=== PATIENT | male | born 1930 ===

== ENCOUNTER 2017-06-27 06:14 | Day surgery (SDC) | payer MEDICARE ==
[2015-02-24 09:21] VITALS: BMI 26.4
[2017-06-27] MEDS ORDERED: Propofol 10 mg/ml Inj (20 ML) ONE (07:54)
[2017-06-27] MEDS ORDERED: Lactated Ringer's 1,000 ML IV ONE (08:55)
--- NOTE | 2017-06-27 08:55 | CP.SDSHP ---
Same Day Surgery H & P - History Proposed Procedure: endoscopy Pre-Op Diagnosis: reflux, gastritis - Previous Medical/Surgical History Comments: prostate Cancer - Allergies Allergies: Allergies Penicillins Allergy (Severe, Verified 06/27/17 07:07) ANAPHYLAXIS - Physical Exam Vital Signs: Vital Signs 06/27/17 07:08 Temperature 97.1 F L Pulse Rate 66 Respiratory 19 Rate Blood Pressure 147/70 O2 Sat by Pulse 97 Oximetry Mental Status: Alert & Oriented x3 Neuro: WNL Heart: WNL Lungs: WNL GI: WNL - {Optional Preform as Required} Abdomen: WNL - Impression Impression: reflux, gastritis, esophagitis Pt. Evaluated Today:Candidate for Anesthesia & Procedure: Yes - Date & Time Date: 06/27/17 Time: 08:50 Short Stay Discharge - Short Stay Discharge Admitting Diagnosis/Reason for Visit: GASTRITIS Disposition: HOME/ ROUTINE
[2017-06-27 10:08] VITALS: O2SAT 100
[2017-06-27 10:54] VITALS: BP 147/67; PULSE 57; RESP 16; TEMP 98.7
== END 2017-06-27 10:30 | disposition home or self-care (01) ==
LOC: C.ENDO 06:14
PROVIDERS: ATTEND Internal Medicine Gastroenterology
DX: K21.0 Gastro-esophageal reflux disease with esophagitis (principal); K29.70 Gastritis, unspecified, without bleeding; Z87.891 Personal history of nicotine dependence; Z88.0 Allergy status to penicillin; I10 Essential (primary) hypertension; J43.9 Emphysema, unspecified; K44.9 Diaphragmatic hernia without obstruction or gangrene
CPT/HCPCS: 43239; 88305; 88312; 88342; J3010; J7120

== ENCOUNTER 2018-04-15 13:54 | Outpatient (CLI) | payer MEDICARE | END 2018-04-15 13:55 | disposition home or self-care (01) | LOC: C.LAB 13:54 ==

== ENCOUNTER 2018-05-29 12:02 | Emergency (ER) | payer MEDICARE ==
[2018-05-29 12:02] VITALS: BMI 26.8
[2018-05-29 13:01] LABS: BASO # 0.1 K/uL (0.0-0.2); BASO % 0.6 % (0.0-2.0); EOS # 0.3 K/uL (0.0-0.7); HEMOGLOBIN 13.4 g/dL (12.0-18.0); LYMPH # 0.7 K/uL (1.0-4.3); LYMPH % 4.4 % (20.0-40.0); MEAN CELL VOLUME 88.2 fL (80.0-94.0); MEAN CORPUSCULAR HEMOGLOBIN 29.5 pg (27.0-31.0); MEAN CORPUSCULAR HGB CONC 33.5 g/dL (33.0-37.0); MEAN PLATELET VOLUME 8.5 fL (7.2-11.7); MONO # 1.4 K/uL (0.0-0.8); MONO % 8.9 % (0.0-10.0); NEUT # 13.5 K/uL (1.8-7.0); NEUT % 84.1 % (50.0-75.0); PLATELET COUNT 272 K/uL (130-400); RBC 4.55 Mil/uL (4.40-5.90); RED CELL DISTRIBUTION WIDTH 14.4 % (11.5-14.5)
[2018-05-29 13:03] LABS: VENOUS BLOOD GAS BASE EXCESS 0.5 mmol/L (0.0-2.0); VENOUS BLOOD GAS PCO2 41 mmHg (40-60); VENOUS BLOOD GAS PO2 32 mm/Hg (30-55)
[2018-05-29 13:11] LABS: INR 1.1; PROTHROMBIN TIME 12.2 SECONDS (9.7-12.2)
--- NOTE | 2018-05-29 13:15 | C.PDOC ---
History Of Present Illness 87 y/o male presents to the ER complaining of fever, cough and body aches which began today. Patient states that he was admitted for pneumonia at another hospital and he was discharged last week. Patient denies having CP,SOB, nausea, vomiting, and diarrhea. Of note, patient is febrile in triage. Time Seen by Provider: 05/29/18 12:22 Chief Complaint (Nursing): Fever History Per: Patient History/Exam Limitations: no limitations Onset/Duration Of Symptoms: Days Current Symptoms Are (Timing): Still Present Severity: Moderate Past Medical History Reviewed: Historical Data, Nursing Documentation, Vital Signs Vital Signs: Last Vital Signs Temp 100.2 F H 05/29/18 12:05 Pulse 104 H 05/29/18 12:05 Resp 20 05/29/18 12:05 BP 153/69 H 05/29/18 12:05 Pulse Ox 98 05/29/18 12:05 - Medical History PMH: Benign Prostatic Hyperplasia, Colonic Polyps, COPD, Emphysema, Fractures (LEFT WRIST), Gastritis, HTN Denies: Chronic Kidney Disease, Seizures, Sleep Apnea, TIA Surgical History: Endoscopy - [facility] Procedures (05/14/18) APPLICATION OF SPLINT (11/19/14) ENDOSC POLYPECTOMY OF LG INTEST (02/11/14) ESOPHAGOGASTRODUODENOSCOPY [EGD] W/CLOSED BIOPSY (08/06/13) INTRODUCTION OF SERUM/TOX/VACCINE INTO MUSCLE, PERC APPROACH (05/14/18) Family History: States: No Known Family Hx - Social History Hx Alcohol Use: No Hx Substance Use: No - Immunization History Hx Tetanus Toxoid Vaccination: No Hx Influenza Vaccination: No Hx Pneumococcal Vaccination: No Review Of Systems Except As Marked, All Systems Reviewed And Found Negative. Constitutional: Positive for: Fever, Malaise. Negative for: Chills Cardiovascular: Negative for: Chest Pain Respiratory: Positive for: Cough. Negative for: Shortness of Breath Gastrointestinal: Negative for: Nausea, Vomiting, Abdominal Pain Physical Exam - Physical Exam Appears: Non-toxic, No Acute Distress Skin: Normal Color, Warm, Dry Head: Atraumatic, Normacephalic Eye(s): bilateral: Normal Inspection Ear(s): Bilateral: Normal Nose: Normal Oral Mucosa: Moist Throat: Normal, No Erythema, No Exudate Neck: Supple Chest: Symmetrical Cardiovascular: Rhythm Regular Respiratory: Normal Breath Sounds, No Rales, No Rhonchi, No Wheezing Gastrointestinal/Abdominal: Normal Exam, Soft, No Tenderness, No Guarding, No Rebound Neurological/Psych: Oriented x3, Normal Speech ED Course And Treatment - Laboratory Results Result Diagrams: 05/29/18 12:56 05/29/18 12:56 Lab Results: pO2 32 mm/Hg (30-55) 05/29/18 12:56 VBG pH 7.40 (7.32-7.43) 05/29/18 12:56 VBG pCO2 41 mmHg (40-60) 05/29/18 12:56 VBG HCO3 24.3 mmol/L 05/29/18 12:56 VBG Total CO2 26.7 mmol/L (22-28) 05/29/18 12:56 VBG O2 Sat (Calc) 66.4 % (40-65) H 05/29/18 12:56 VBG Base Excess 0.5 mmol/L (0.0-2.0) 05/29/18 12:56 VBG Potassium 4.1 mmol/L (3.6-5.2) 05/29/18 12:56 Sodium 133.0 mmol/l (132-148) 05/29/18 12:56 Chloride 101.0 mmol/L (98-107) 05/29/18 12:56 Glucose 107 mg/dl (75-110) 05/29/18 12:56 Lactate 1.5 mmol/L (0.7-2.1) 05/29/18 12:56 PT 12.2 SECONDS (9.7-12.2) 05/29/18 12:56 INR 1.1 05/29/18 12:56 APTT 35 SECONDS (21-34) H 05/29/18 12:56 ECG: Interpreted By Me, Viewed By Me ECG Rhythm: Sinus Rhythm Interpretation Of ECG: NSR with no ST/ T wave changes Rate From EC O2 Sat by Pulse Oximetry: 98 (RA) Pulse Ox Interpretation: Normal Medical Decision Making Medical Decision Making: ro pna, viral syndrome Plan: --Labs --UA --ECG --CXR --Flu Swab --Tylenol PO pt reassesed .abd soft no ttp. noted lueukocytosis. cxr neg ua neg. abd soft. case discussed with dr sotelo pmd. states pt recieved zpak yesterday. pt offered observation in hospital, but declines, asking for dc. Disposition - Disposition Disposition: HOME/ ROUTINE Disposition Time: 16:00 Condition: GOOD Additional Instructions: return to er with worsening symptoms or concersn. Instructions: Viral Syndrome (DC) Forms: [employer] ([employer]) - Clinical Impression Clinical Impression: Viral syndrome - Scribe Statement The provider has reviewed the documentation as recorded by the Salud Shook Provider Attestation: All medical record entries made by the Montyibe were at my direction and personally dictated by me. I have reviewed the chart and agree that the record accurately reflects my personal performance of the history, physical exam, medical decision making, and the department course for this patient. I have also personally directed, reviewed, and agree with the discharge instructions and disposition.
[2018-05-29 13:25] LABS: ALB/GLOB RATIO 1.4 (1.0-2.1); ALBUMIN 4.1 g/dL (3.5-5.0); ALT/SGPT 44 U/L (21-72); AST/SGOT 73 U/L (17-59); BANDS 5 % (0-2); BLOOD UREA NITROGEN 18 mg/dL (9-20); CALCIUM 9.3 mg/dl (8.6-10.4); EOSINOPHIL 3 % (0-4); GFR NON-AFRICAN AMERICAN > 60; LYMPHOCYTE 6 % (20-40); MONOCYTE 11 % (0-10); NEUTROPHIL 75 % (50-75); PLATELET ESTIMATE NORMAL (NORMAL); TOTAL CELLS COUNTED 100
[2018-05-29 13:30] LABS: URINE BILIRUBIN NEGATIVE (NEGATIVE); URINE BLOOD NEGATIVE (NEGATIVE); URINE CLARITY Clear (Clear); URINE COLOR Yellow (YELLOW); URINE GLUCOSE (UA) NORMAL (Normal); URINE LEUKOCYTE ESTERASE NEG Leu/uL (Negative); URINE PROTEIN NEGATIVE (NEGATIVE); URINE UROBILINOGEN NORMAL mg/dL (0.2-1.0)
--- NOTE | 2018-05-29 14:01 | RAD ---
Date of service: 05/29/2018 HISTORY: Chest pain COMPARISON: 11/26/2016 TECHNIQUE: Chest PA and lateral FINDINGS: LINES AND TUBES: None. LUNG AND PLEURA: The lungs are well inflated and clear. No pleural effusion or pneumothorax. HEART AND MEDIASTINUM: The heart is not enlarged. There are aortic atherosclerotic calcifications present. The hilar and mediastinal contours are within normal limits. SKELETAL STRUCTURES: The bony structures are within normal limits for the patient's age. 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 VISUALIZED UPPER ABDOMEN: Normal. OTHER FINDINGS: None. IMPRESSION: No active pulmonary disease.
[2018-05-29 15:21] VITALS: BP 147/78; PULSE 89; RESP 17; TEMP 98.6
[2018-05-29 16:37] VITALS: O2SAT 98
--- NOTE | 2018-06-01 20:11 | CARD ---
APPROVED REPORT Date of service: 05/29/2018 EKG Measurement Heart [id number] <Conclusion> Normal sinus rhythm Minimal voltage criteria for LVH, may be normal variant Inferior infarct, age undetermined Abnormal ECG
== END 2018-05-29 15:20 | disposition home or self-care (01) ==
LOC: C.ER 12:02
DX: B34.9 Viral infection, unspecified (principal)